=== PATIENT | male | born 1950 | race Caucasian/White ===

== ENCOUNTER 2016-07-12 14:33 | Inpatient (IN) | payer OTHER ==
[~2016-07-12] VITALS: Ht 162.6 cm; Wt 90.6 kg
[2016-07-12] MEDS ORDERED: MIRT15TA5 PO (18:06)
[2016-07-12] MEDS ORDERED: PARO10TA26 PO (18:06)
[2016-07-12] MEDS ORDERED: SIMV10TA PO (18:06)
[2016-07-12] MEDS ORDERED: OLAN15TA3 PO (18:07)
[2016-07-12] MEDS ORDERED: CLON1TAB3 PO (18:07)
[2016-07-12] MEDS ORDERED: GABA300C16 PO (18:08)
[2016-07-12] MEDS ORDERED: GLIP-95 PO (18:09)
[2016-07-12] MEDS ORDERED: MTF1000T PO (18:10)
[2016-07-12 19:46] VITALS: BP 113/77; RESP 15
[2016-07-12] MEDS ORDERED: NACL 0.9% 3 ML SYG IV SCH (20:00)
[2016-07-12] MEDS ORDERED: ALBUTEROL/IPRATROPIUM (NEB) 3 ML AMP HHN PRN (20:00)
[2016-07-12] MEDS ORDERED: ACETAMINOPHEN 325 MG TAB PO PRN (20:00)
[2016-07-12 20:06] VITALS: Ht 162.6 cm; Wt 90.6 kg
[2016-07-12 20:17] VITALS: BP 97/58; PULSE 73; RESP 19
[2016-07-12] MEDS ORDERED: GLUCOSE GEL 15 GRAM TUBE PO PRN ×2 (20:30)
[2016-07-12] MEDS ORDERED: DEXTROSE 50% 50 ML SYRINGE IV PRN ×2 (20:30)
[2016-07-12] MEDS ORDERED: GLUCAGON 1 MG INJ IM PRN (20:30)
[2016-07-12] MEDS ORDERED: GLUCOSE GEL 15 GRAM TUBE BUCCAL PRN (20:30)
[2016-07-12 20:41] VITALS: PULSE 71
[2016-07-12] MEDS ORDERED: INSULIN GLARGINE [LANtus] 3 ML PEN SC SCH (21:00)
[2016-07-12] MEDS: MIRTAZAPINE 15 MG TAB PO SCH (21:47)
[2016-07-12] MEDS: GABAPENTIN 300 MG CAP PO SCH (21:47)
[2016-07-12] MEDS: ATORVASTATIN 10 MG TAB PO SCH (21:47)
[2016-07-12] MEDS: METHYLPREDNISOLONE 125 MG INJ IV SCH (21:48)
[2016-07-12] MEDS: LEVOFLOXACIN 500MG/D5W (PMX) 100 ML IVPB SCH (21:48)
[2016-07-12] MEDS: INSULIN ASPART [NOVOLOG] 3 ML PEN SC SCH (21:52)
[2016-07-13] VITALS (12 sets, daily range): BP systolic 107–145; BP diastolic 66–104; PULSE 61–74; RESP 15–20
[2016-07-13] MEDS: ACCU-CHEK XX SCH ×5 (02:05→21:00)
[2016-07-13] MEDS: PANTOPRAZOLE (EC) 40 MG TAB PO SCH (06:03)
[2016-07-13] MEDS: INSULIN ASPART [NOVOLOG] 3 ML PEN SC SCH ×8 (07:48→22:04)
[2016-07-13] MEDS: PAROXETINE 10 MG TAB PO SCH (08:15)
[2016-07-13] MEDS: OLANZAPINE 5 MG TAB PO SCH (08:15)
[2016-07-13] MEDS: METHYLPREDNISOLONE 125 MG INJ IV SCH (08:15)
[2016-07-13] MEDS: GABAPENTIN 300 MG CAP PO SCH ×3 (08:15→22:01)
[2016-07-13] MEDS: ATORVASTATIN 10 MG TAB PO SCH (08:15)
[2016-07-13 10:05] LABS: ADD SCAN DIFF NO
[2016-07-13 10:10] LABS: BASOPHILS % 0.1 % (0.0-2.0); HEMATOCRIT 49.6 % (42.0-52.0); HEMOGLOBIN 16.4 g/dl (14.0-18.0); LYMPHOCYTES % 6.3 % (15.0-51.0); MEAN CORPUSCULAR HEMOGLOBIN 32.2 pg (29.0-33.0); MEAN CORPUSCULAR HGB CONC 33.1 g/dl (32.0-37.0); MEAN CORPUSCULAR VOLUME 97.3 fl (82.0-101.0); MEAN PLATELET VOLUME 11.2 fl (7.4-10.4); MONOCYTE # 0.6 10^3/ul (0.3-0.9); MONOCYTES % 3.9 % (0.0-11.0); NEUTROPHIL # 13.5 10^3/ul (1.6-7.5); NEUTROPHILS % 89.3 % (39.0-77.0); PLATELET COUNT 261 10^3/UL (140-415); RED CELL DISTRIBUTION WIDTH 12.2 % (11.5-14.5); WHITE BLOOD COUNT 15.2 10^3/ul (4.8-10.8)
[2016-07-13 10:14] LABS: CALCIUM 9.2 mg/dl (8.4-10.2); CREATININE 0.7 mg/dl (0.61-1.24); POTASSIUM 4.4 mmol/L (3.5-5.1)
[2016-07-13 11:02] LABS: AADO2 Arterial 47.2 mmHg (7.0-24.0); Allen Test ACCEPTAB; Arterial Base Excess -2.4 mmol/L (-3.0-3); Arterial COHb 0.3 % (0.0-3.0); Arterial Fraction of Oxyhgb 87.8 % (93.0-99.0); Arterial HCO3 21.9 mmol/L (22.0-26.0); Arterial MetHb 0.2 % (0.0-1.5); Arterial Total Hemglobin 16.9 g/dl (12.0-18.0); MODE ROOM AIR
--- NOTE | 2016-07-13 17:37 | QN ---
Documentation Comment [id number] PALMER EDUARDO MD July 13, 2016 17:37
[2016-07-13] MEDS ORDERED: INSULIN GLARGINE [LANtus] 3 ML PEN SC SCH (20:00)
[2016-07-13] MEDS: ALBUTEROL/IPRATROPIUM (NEB) 3 ML AMP HHN SCH (20:00)
--- NOTE | 2016-07-13 20:14 | HP ---
DATE OF ADMISSION: 07/12/2016 HISTORY OF PRESENT ILLNESS: Mr. Massey is a poor historian. The patient was transferred to [facility] due to capitation, was taken to the transferring hospital with diagn osis of short of breath. The patient denies having fevers, chills or rigors, denies any diabetes me llitus or hypertension, but the patient is on metformin. The patient denies any fevers, chills or r igors. The patient denies any dyspnea on exertion, chest pain, palpitation at this point, orthopnea or PND. PAST MEDICAL HISTORY: Positive for anxiety, depression, dyslipidemia, diabetes mellitus. ALLERGY HISTORY: DENIES. FAMILY HISTORY: Denies. SOCIAL HISTORY: Denies. MEDICATION HISTORY: He denies but listed medicines include: 1. Clonazepam. 2. Gabapentin. 3. Glipizide. 4. Metformin. 5. Mirtazapine. 6. Zyprexa. 7. Paxil. 8. Simvastatin. REVIEW OF SYSTEMS: HEENT: Unremarkable. RESPIRATORY: Short of breath. CARDIOVASCULAR: Unremarkable. ABDOMEN: Unremarkable. EXTREMITIES: Unremarkable. PHYSICAL EXAMINATION: GENERAL: The patient is mildly overweight. VITAL SIGNS: Stable. Pulse 65, blood pressure 130/66. HEAD: Atraumatic, normocephalic. EYES: Pupils equal, reactive to light. NECK: Supple. No JVD. LUNGS: Clear. CARDIOVASCULAR: S1, S2 are normal. ABDOMEN: Soft, nontender. Bowel sounds present. No palpable mass or hepatosplenomegaly. No guard ing, rebound tenderness. EXTREMITIES: No cyanosis, clubbing or edema. CENTRAL NERVOUS SYSTEM: The patient is awake, alert. No focal deficit. LABORATORY DATA: Sodium 132, potassium 4.4, glucose 315. IMPRESSION: The patient has: 1. Shortness of breath. 2. Azotemia. 3. Hyponatremia. 4. Possible underlying chronic obstructive pulmonary disease exacerbation. 5. Uncontrolled diabetes mellitus. PLAN: Give this patient Levaquin, sliding scale, Lipitor, clonazepam, gabapentin. The patient will have sliding scale, Solu-Medrol, breathing treatment. Orders were done. Dictated By: PALMER SOLIS/BONITA Conf#: [id number] DID#: [id number]
[2016-07-13] MEDS: MIRTAZAPINE 15 MG TAB PO SCH (22:01)
[2016-07-13] MEDS: LEVOFLOXACIN 500MG/D5W (PMX) 100 ML IVPB SCH (22:01)
[2016-07-13] MEDS: INSULIN GLARGINE [LANtus] 3 ML PEN SC SCH (22:07)
[2016-07-14] VITALS (12 sets, daily range): BP systolic 101–131; BP diastolic 63–78; PULSE 56–62; RESP 18–20
[2016-07-14] MEDS: clonAZEPAM 0.5 MG TAB PO PRN ×2 (00:18→23:50)
[2016-07-14] MEDS: ACCU-CHEK XX SCH ×5 (02:16→20:24)
[2016-07-14] MEDS: ALBUTEROL/IPRATROPIUM (NEB) 3 ML AMP HHN SCH ×4 (03:15→20:10)
--- NOTE | 2016-07-14 04:09 | RADRPT ---
PROCEDURE: CT Chest without contrast. CLINICAL INDICATION: Shortness of breath TECHNIQUE: Spiral CT images through the chest without contrast. Coronal and sagittal reformatted images were obtained from the axial source images. The total exam CTDI equals 14.37 mGy and the tota l exam DLP equals 541.16 mGy-cm. One or more of the following dose reduction techniques were used: a utomated exposure control, adjustment of the mA and/or kV according to patient size, or use of itera tive reconstruction technique. COMPARISON: None FINDINGS: Slight calcification of the aortic arch and coronary arteries is seen. No focal consolidation is se en. There is dependent atelectasis of the lungs. There is, however, a subtle suggestion of tiny per ibronchial nodular opacities throughout the lung aguilar bilaterally which could be due to tiny perib ronchial nodules in the setting of bronchiolitis. No bronchiectasis is seen. No definite tree in b ud opacities. The heart size appears within normal limits. Calcified hepatic granuloma is seen. No pleural or pericardial effusion is seen. No hilar or mediastinal adenopathy is seen. There is min imal degenerative change of the spine. No other abnormality is seen.. IMPRESSION: No definite focal consolidation or pleural effusion. Possible subtle tiny nodules throughout the ryann ngs which could be due to very subtle bronchiolitis or may be incidental. RPTAT: HLBE Physician Dragan Date Time Electronically viewed and signed by Itzel Valdivia Physician on 07/14/2016 04:08 RIGO/
[2016-07-14] MEDS: PANTOPRAZOLE (EC) 40 MG TAB PO SCH (05:18)
[2016-07-14 07:25] LABS: ADD SCAN DIFF NO
[2016-07-14] MEDS: INSULIN ASPART [NOVOLOG] 3 ML PEN SC SCH ×7 (07:35→20:18)
[2016-07-14 07:44] LABS: BASOPHILS % 0.2 % (0.0-2.0); EOSINOPHILS # 0.1 10^3/ul (0.0-0.5); EOSINOPHILS % 0.5 % (0.0-7.0); HEMATOCRIT 47.3 % (42.0-52.0); HEMOGLOBIN 15.8 g/dl (14.0-18.0); LYMPHOCYTES % 23.7 % (15.0-51.0); MEAN CORPUSCULAR HEMOGLOBIN 32.3 pg (29.0-33.0); MEAN CORPUSCULAR HGB CONC 33.4 g/dl (32.0-37.0); MEAN CORPUSCULAR VOLUME 96.7 fl (82.0-101.0); MEAN PLATELET VOLUME 10.8 fl (7.4-10.4); MONOCYTE # 0.9 10^3/ul (0.3-0.9); MONOCYTES % 7.2 % (0.0-11.0); NEUTROPHIL # 8.4 10^3/ul (1.6-7.5); NEUTROPHILS % 67.6 % (39.0-77.0); PLATELET COUNT 229 10^3/UL (140-415); RED BLOOD COUNT 4.89 10^6/ul (4.70-6.10); RED CELL DISTRIBUTION WIDTH 12.1 % (11.5-14.5); WHITE BLOOD COUNT 12.5 10^3/ul (4.8-10.8)
[2016-07-14 08:23] LABS: ALBUMIN 3.7 g/dl (3.3-4.9)
[2016-07-14 08:25] LABS: ALBUMIN/GLOBULIN RATIO 1.02; BILIRUBIN,INDIRECT 0.2 mg/dl (0-1.1); BILIRUBIN,TOTAL 0.2 mg/dl (0.2-1.3); CREATININE 0.79 mg/dl (0.61-1.24); TOTAL PROTEIN 7.3 g/dl (6.1-8.1)
[2016-07-14 08:26] LABS: CALCIUM 8.8 mg/dl (8.4-10.2)
[2016-07-14] MEDS: PAROXETINE 10 MG TAB PO SCH (08:45)
[2016-07-14] MEDS: ATORVASTATIN 10 MG TAB PO SCH (08:45)
[2016-07-14] MEDS: OLANZAPINE 5 MG TAB PO SCH (08:45)
[2016-07-14] MEDS: GABAPENTIN 300 MG CAP PO SCH ×3 (08:45→20:24)
[2016-07-14] MEDS ORDERED: METHYLPREDNISOLONE 40 MG INJ IV SCH (09:00)
[2016-07-14] MEDS: ENOXAPARIN 40 MG/0.4 ML SYG SC SCH (09:05)
[2016-07-14] MEDS: LEVOFLOXACIN 500MG/D5W (PMX) 100 ML IVPB SCH (20:00)
[2016-07-14] MEDS: INSULIN GLARGINE [LANtus] 3 ML PEN SC SCH (20:22)
[2016-07-14] MEDS: MIRTAZAPINE 15 MG TAB PO SCH (20:24)
--- NOTE | 2016-07-14 23:27 | PN ---
Date/Time of Note Date/Time of Note DATE: 07/14/16 TIME: 23:26 Assessment/Plan VTE Prophylaxis VTE Prophylaxis Intervention: other Lines/Catheters [facility] Saline Lock Urinary Cath still in place: No Assessment/Plan Chief Complaint/Hosp Course IMPRESSION: The patient has: 1. Shortness of breath. 2. Azotemia. 3. Hyponatremia. 4. Possible underlying chronic obstructive pulmonary disease exacerbation. 5. Uncontrolled diabetes mellitus. plan hhn steroid Problems: Subjective 24 Hr Interval Summary Cardiovascular: no complaints Gastrointestinal: no complaints Exam/Review of Systems Vital Signs Vitals Vital Signs Date Time Temp Pulse Resp B/P Pulse Ox O2 Delivery O2 Flow Rate FiO2 07/14/16 20:19 61 07/14/16 20:19 18 98 Nasal Cannula 2.0 07/14/16 19:53 97.5 131/78 Intake and Output 07/13/16 07/13/16 07/14/16 15:00 23:00 07:00 Intake Total 850 ml 540 ml Output Total 800 ml 300 ml Balance 50 ml 240 ml Exam Respiratory: diminished breath sounds Cardiovascular: regular rate and rhythm Gastrointestinal: soft Extremities: normal pulses Neurological: SCOW HAND II-XII intact Results Result Diagram: 07/14/16 0653 07/14/16 0658 Results 24 hrs Laboratory Tests Test 07/14/16 02:13 07/14/16 06:53 07/14/16 06:58 07/14/16 07:32 Bedside Glucose 253 H 265 H White Blood Count 12.5 H Red Blood Count 4.89 Hemoglobin 15.8 Hematocrit 47.3 Mean Corpuscular Volume 96.7 Mean Corpuscular Hemoglobin 32.3 Mean Corpuscular Hemoglobin Concent 33.4 Red Cell Distribution Width 12.1 Platelet Count 229 Mean Platelet Volume 10.8 H Neutrophils % 67.6 Lymphocytes % 23.7 Monocytes % 7.2 Eosinophils % 0.5 Basophils % 0.2 Nucleated Red Blood Cells % 0.0 Neutrophils # 8.4 H Lymphocytes # 3.0 H Monocytes # 0.9 Eosinophils # 0.1 Basophils # 0.0 Nucleated Red Blood Cells # 0.0 Sodium Level 133 L Potassium Level 4.0 Chloride Level 96 L Carbon Dioxide Level 27 Anion Gap 14 Blood Urea Nitrogen 28 H Creatinine 0.79 Glucose Level 280 H Calcium Level 8.8 Total Bilirubin 0.2 Direct Bilirubin 0.00 Indirect Bilirubin 0.2 Aspartate Amino Transf (AST/SGOT) 21 Alanine Aminotransferase (ALT/SGPT) 36 Alkaline Phosphatase 92 Total Protein 7.3 Albumin 3.7 Globulin 3.60 H Albumin/Globulin Ratio 1.02 Test 07/14/16 12:08 07/14/16 17:21 07/14/16 20:06 Bedside Glucose 249 H 351 H 307 H Medications Medications Current Medications Acetaminophen (Tylenol Tab) 650 mg Q6H PRN PO PAIN LEVEL 1-3 OR FEVER; Start at 20:00 Diagnostic Test (Pha) (Accu-Chek) 1 ea 02 XX Last administered on 07/14/16 02: 16; Admin Dose 1 EA; Start 07/13/16 at 02:00 Pantoprazole 40 mg 40 mg DAILY@06 PO Last administered on 07/14/16 05:18; Admin Dose 40 MG; Start 07/13/16 at 06:00 Levofloxacin/ Dextrose (Levaquin 500mg/ D5W 100 ml (Pmx)) 100 ml @ 100 mls/hr Q24H IVPB Last administered on 07/14/16 20:00; Admin Dose 100 MLS/HR; Start at 20:00 Clonazepam (Klonopin) 1 mg TID PRN PO ANXIETY Last administered on 07/14/16 00 :18; Admin Dose 1 MG; Start 07/12/16 at 20:00 Gabapentin (Neurontin) 300 mg TID PO Last administered on 07/14/16 20:24; Admin Dose 300 MG; Start 07/12/16 at 21:00 Mirtazapine (Remeron) 15 mg HS PO Last administered on 07/14/16 20:24; Admin Dose 15 MG; Start 07/12/16 at 21:00 Olanzapine (Zyprexa) 15 mg DAILY PO Last administered on 07/14/16 08:45; Admin Dose 15 MG; Start 07/13/16 at 09:00 Paroxetine HCl (Paxil) 10 mg DAILY PO Last administered on 07/14/16 08:45; Admin Dose 10 MG; Start 07/13/16 at 09:00 Atorvastatin Calcium (Lipitor) 10 mg DAILY PO Last administered on 07/14/16 08 :45; Admin Dose 10 MG; Start 07/12/16 at 21:00 Miscellaneous Information 1 ea NOTE XX ; Start 07/12/16 at 20:30 Glucose (Glutose) 15 gm Q15M PRN PO DECREASED GLUCOSE; Start 07/12/16 at 20:30 Glucose (Glutose) 22.5 gm Q15M PRN PO DECREASED GLUCOSE; Start 07/12/16 at 20: 30 Dextrose (D50w Syringe) 25 ml Q15M PRN IV DECREASED GLUCOSE; Start 07/12/16 at 20:30 Dextrose (D50w Syringe) 50 ml Q15M PRN IV DECREASED GLUCOSE; Start 07/12/16 at 20:30 Glucagon (Glucagen) 1 mg Q15M PRN IM DECREASED GLUCOSE; Start 07/12/16 at 20:30 Glucose (Glutose) 15 gm Q15M PRN BUCCAL DECREASED GLUCOSE; Start 07/12/16 at 20 :30 Enoxaparin Sodium (Lovenox) 40 mg DAILY SC Last administered on 07/14/16 09:05 ; Admin Dose 40 MG; Start 07/14/16 at 09:00 Insulin Glargine (Lantus) 30 unit DAILY@20 SC Last administered on 07/14/16 20 :22; Admin Dose 30 UNIT; Start 07/13/16 at 20:00 Methylprednisolone Sodium Succinate (Solu-Medrol) 20 mg DAILY IV ; Start at 09:00 PALMER EDUARDO MD July 14, 2016 23:27
[2016-07-15] VITALS (12 sets, daily range): BP systolic 103–128; BP diastolic 57–78; PULSE 45–67; RESP 18–20
[2016-07-15] MEDS: ALBUTEROL/IPRATROPIUM (NEB) 3 ML AMP HHN SCH ×4 (01:24→19:58)
[2016-07-15] MEDS: ACCU-CHEK XX SCH ×5 (02:00→21:00)
[2016-07-15] MEDS: PANTOPRAZOLE (EC) 40 MG TAB PO SCH (05:51)
[2016-07-15] MEDS: GABAPENTIN 300 MG CAP PO SCH ×3 (08:20→20:39)
[2016-07-15] MEDS: PAROXETINE 10 MG TAB PO SCH (08:20)
[2016-07-15] MEDS: ATORVASTATIN 10 MG TAB PO SCH (08:20)
[2016-07-15] MEDS: OLANZAPINE 5 MG TAB PO SCH (08:20)
[2016-07-15] MEDS: ENOXAPARIN 40 MG/0.4 ML SYG SC SCH (08:57)
[2016-07-15] MEDS: INSULIN ASPART [NOVOLOG] 3 ML PEN SC SCH ×7 (08:57→20:44)
[2016-07-15] MEDS ORDERED: METHYLPREDNISOLONE 40 MG INJ IV SCH (09:00)
--- NOTE | 2016-07-15 14:49 | CONS ---
Date/Time of Note Date/Time of Note DATE: 07/15/16 TIME: 14:48 Consultation Date/Type/Reason Admit Date/Time July 12, 2016 at 19:06 Date of Consultation: July 15, 2016 Type of Consultation: Pulmonary Reason for Consultation Consult dictated [id number] Patient can be discharged home on Medrol Dosepak and Levaquin at least for 3 more days. Obtain pulse oximetry on room air with ambulation rule out hypoxemia. Cardiovascular: no complaints Gastrointestinal: no complaints Social History Smoking Status: Current every day smoker Exam/Review of Systems Vital Signs Vitals Vital Signs Date Time Temp Pulse Resp B/P Pulse Ox O2 Delivery O2 Flow Rate FiO2 07/15/16 12:00 62 07/15/16 08:19 18 98 Nasal Cannula 2.0 07/15/16 07:39 97.7 118/74 Intake and Output 07/14/16 07/14/16 07/15/16 15:00 23:00 07:00 Intake Total 900 ml 700 ml Output Total 1000 ml Balance -100 ml 700 ml Results Result Diagram: 07/14/16 0653 07/14/16 0658 Results 24 hrs Laboratory Tests Test 07/14/16 17:21 07/14/16 20:06 07/15/16 02:29 07/15/16 07:51 Bedside Glucose 351 H 307 H 197 275 H Test 07/15/16 11:52 Bedside Glucose 284 H Medications Medications Current Medications Acetaminophen (Tylenol Tab) 650 mg Q6H PRN PO PAIN LEVEL 1-3 OR FEVER; Start at 20:00 Diagnostic Test (Pha) (Accu-Chek) 1 ea 02 XX Last administered on 07/15/16 02: 00; Admin Dose 1 EA; Start 07/13/16 at 02:00 Pantoprazole (Protonix Tab) 40 mg DAILY@06 PO Last administered on 07/15/16 05 :51; Admin Dose 40 MG; Start 07/13/16 at 06:00 Clonazepam (Klonopin) 1 mg TID PRN PO ANXIETY Last administered on 07/14/16 23 :50; Admin Dose 1 MG; Start 07/12/16 at 20:00 Gabapentin (Neurontin) 300 mg TID PO Last administered on 07/15/16 12:25; Admin Dose 300 MG; Start 07/12/16 at 21:00 Mirtazapine (Remeron) 15 mg HS PO Last administered on 07/14/16 20:24; Admin Dose 15 MG; Start 07/12/16 at 21:00 Olanzapine (Zyprexa) 15 mg DAILY PO Last administered on 07/15/16 08:20; Admin Dose 15 MG; Start 07/13/16 at 09:00 Paroxetine HCl (Paxil) 10 mg DAILY PO Last administered on 07/15/16 08:20; Admin Dose 10 MG; Start 07/13/16 at 09:00 Atorvastatin Calcium (Lipitor) 10 mg DAILY PO Last administered on 07/15/16 08 :20; Admin Dose 10 MG; Start 07/12/16 at 21:00 Miscellaneous Information 1 ea NOTE XX ; Start 07/12/16 at 20:30 Glucose (Glutose) 15 gm Q15M PRN PO DECREASED GLUCOSE; Start 07/12/16 at 20:30 Glucose (Glutose) 22.5 gm Q15M PRN PO DECREASED GLUCOSE; Start 07/12/16 at 20: 30 Dextrose (D50w Syringe) 25 ml Q15M PRN IV DECREASED GLUCOSE; Start 07/12/16 at 20:30 Dextrose (D50w Syringe) 50 ml Q15M PRN IV DECREASED GLUCOSE; Start 07/12/16 at 20:30 Glucagon (Glucagen) 1 mg Q15M PRN IM DECREASED GLUCOSE; Start 07/12/16 at 20:30 Glucose (Glutose) 15 gm Q15M PRN BUCCAL DECREASED GLUCOSE; Start 07/12/16 at 20 :30 Enoxaparin Sodium (Lovenox) 40 mg DAILY SC Last administered on 07/15/16 08:57 ; Admin Dose 40 MG; Start 07/14/16 at 09:00 Insulin Glargine (Lantus) 30 unit DAILY@20 SC Last administered on 07/14/16 20 :22; Admin Dose 30 UNIT; Start 07/13/16 at 20:00 Methylprednisolone Sodium Succinate (Solu-Medrol) 20 mg DAILY IV Last administered on 07/15/16 08:21; Admin Dose 20 MG; Start 07/15/16 at 09:00 Levofloxacin (Levaquin) 500 mg DAILY@18 PO ; Start 07/15/16 at 18:00 VAISHNAVI ORR July 15, 2016 14:49
--- NOTE | 2016-07-15 15:36 | CONS ---
DATE OF ADMISSION: 07/12/2016 DATE OF CONSULTATION: 07/15/2016 PULMONARY CONSULTATION TIME: 2:45 p.m. REFERRING PHYSICIAN: Dr. Km Yadav REASON FOR REFERRAL: Evaluation of COPD exacerbation. HISTORY OF PRESENT ILLNESS: Mr. Galaviz is a 66-year-old male who was transferred to [facility] due to cavitation issues. The patient was taken to a transferring ospital with complains of shortness of breath, coughing and wheezing, going on for the last few days . By the time I saw the patient, the patient was feeling much better. Still complains of very minim al shortness of breath. According to him the wheezing and chest congestion is better. He denies an y high fever, chills, or any body aches or myalgias. PAST MEDICAL HISTORY: 1. COPD. 2. Diabetes. 3. Hyperlipidemia. 4. Depression. 5. Anxiety. 6. No history of any coronary artery disease. CURRENT MEDICATIONS: 1. Levaquin 500 mg IV daily. 2. Lipitor 10 mg a day. 3. Klonopin 1 mg t.i.d. p.r.n. anxiety. 4. Lovenox 40 mg a day. 5. Neurontin 300 mg t.i.d. 6. Lantus insulin 30 units daily. 7. Solu-Medrol 40 mg IV daily. 8. Sliding scale insulin. 9. Protonix 40 mg a day. 10. Paxil 10 mg a day. ALLERGIES: NONE. SOCIAL HISTORY: The patient smokes off and on. No history of alcohol or drug abuse. FAMILY HISTORY: Various family members have diabetes and hypertension. OCCUPATIONAL HISTORY: The patient is currently on disability. He used to work in construction. REVIEW OF SYSTEMS: Denies any headaches, visual changes, sinus symptoms, postnasal drip. Chest: Sh ortness of breath is improving. Complains of very minimal dyspnea on exertion. Complains of very s cant cough, scant yellow sputum production. Denies any fever, chills, abdominal pain, nausea, vomit ing, melena, hematochezia, edema, orthopnea, PND or any weight change. PHYSICAL EXAMINATION: GENERAL: Elderly awake, alert, currently in no distress. VITAL SIGNS: Temperature 98 degree Fahrenheit, respiratory rate is 18 per minute, heart rate 62 per minute, blood pressure is 118/74, O2 saturation is 98% on 2 liters nasal cannula. HEENT EXAMINATION: Supple neck. No JVD, no lymphadenopathy. Midline trachea. No thyromegaly. Pha rynx clear. No neck bruits. Patient is edentulous. Pupils are mid size and reactive to light bilat erally. Extraocular movements are intact. CHEST EXAMINATION: Diminished but clear breath sounds. HEART: S1, S2 audible. No murmurs. Regular rhythm. ABDOMEN: Soft, nontender, nondistended, protuberant. Bowel sounds audible. No organomegaly. EXTREMITIES: No peripheral edema. Pulses are 1+ bilaterally. No clubbing. NEUROLOGIC EXAM: Cranial nerves are normal. There is no motor or sensory deficits. CT chest was reviewed from the of this month, which is essentially unremarkable. LABORATORY: From yesterday: Sodium 133, potassium 4, chloride 96, bicarbonate 27, glucose 280, BUN 28, creatinine 0.79. White count from yesterday is 12.5, hemoglobin 15.8, platelet count of 229. A BG done on of this month on room air, a pH of 7.39, CO2 of 36, pO2 of 58, O2 saturation 88.2%. ASSESSMENT AND PLAN: 1. Patient admitted with COPD exacerbation and acute bronchitis, with significant clinical improvem ent. 2. History of diabetes, with mild hyperglycemia from systemic steroid treatment. 3. History of depression. 4. History of hyperlipidemia. RECOMMENDATIONS: The patient can be discharged back to home or a residential. Before discharge I would recommend obtaining an ambulatory pulse oximetry to rule out exertional hypoxemia. Patient a lso would benefit from continuation of steroids in the form of a Medrol Dosepak to be used as direct ed, with continuation of oral Levaquin at least for 3 more days. The patient would benefit from a P FT on an outpatient basis and was urged to quit smoking. Dictated By: VAISHNAVI MAHER/BONITA Conf#: [id number] DID#: [id number]
[2016-07-15] MEDS: LEVOFLOXACIN 500 MG TAB PO SCH (17:37)
[2016-07-15] MEDS: MIRTAZAPINE 15 MG TAB PO SCH (20:39)
[2016-07-15] MEDS: INSULIN GLARGINE [LANtus] 3 ML PEN SC SCH (20:43)
--- NOTE | 2016-07-15 22:38 | PN ---
Date/Time of Note Date/Time of Note DATE: 07/15/16 TIME: 22:37 Assessment/Plan VTE Prophylaxis VTE Prophylaxis Intervention: other Lines/Catheters IV Catheter Type (from [facility]): Saline Lock Urinary Cath still in place: No Assessment/Plan Chief Complaint/Hosp Course IMPRESSION: The patient has: 1. Shortness of breath. better 2. Azotemia. 3. Hyponatremia. 4. Possible underlying chronic obstructive pulmonary disease exacerbation. 5. Uncontrolled diabetes mellitus.nichelle plan hhn steroid Problems: Subjective 24 Hr Interval Summary Respiratory: shortness of breath (better) Gastrointestinal: no complaints Genitourinary: no complaints Exam/Review of Systems Vital Signs Vitals Vital Signs Date Time Temp Pulse Resp B/P Pulse Ox O2 Delivery O2 Flow Rate FiO2 07/15/16 20:14 97.7 67 20 123/73 97 07/15/16 20:05 2.0 07/15/16 19:59 Nasal Cannula 27 Intake and Output 07/14/16 07/14/16 07/15/16 15:00 23:00 07:00 Intake Total 900 ml 700 ml Output Total 1000 ml Balance -100 ml 700 ml Exam Respiratory: clear to auscultation Cardiovascular: regular rate and rhythm Gastrointestinal: soft Results Result Diagram: 07/14/16 0653 07/14/16 0658 Results 24 hrs Laboratory Tests Test 07/15/16 02:29 07/15/16 07:51 07/15/16 11:52 07/15/16 17:38 Bedside Glucose 197 275 H 284 H 76 Test 07/15/16 20:41 Bedside Glucose 241 H Medications Medications Current Medications Acetaminophen (Tylenol Tab) 650 mg Q6H PRN PO PAIN LEVEL 1-3 OR FEVER; Start at 20:00 Diagnostic Test (Pha) (Accu-Chek) 1 ea 02 XX Last administered on 07/15/16 02: 00; Admin Dose 1 EA; Start 07/13/16 at 02:00 Pantoprazole (Protonix Tab) 40 mg DAILY@06 PO Last administered on 07/15/16 05 :51; Admin Dose 40 MG; Start 07/13/16 at 06:00 Clonazepam (Klonopin) 1 mg TID PRN PO ANXIETY Last administered on 07/14/16 23 :50; Admin Dose 1 MG; Start 07/12/16 at 20:00 Gabapentin (Neurontin) 300 mg TID PO Last administered on 07/15/16 20:39; Admin Dose 300 MG; Start 07/12/16 at 21:00 Mirtazapine (Remeron) 15 mg HS PO Last administered on 07/15/16 20:39; Admin Dose 15 MG; Start 07/12/16 at 21:00 Olanzapine (Zyprexa) 15 mg DAILY PO Last administered on 07/15/16 08:20; Admin Dose 15 MG; Start 07/13/16 at 09:00 Paroxetine HCl (Paxil) 10 mg DAILY PO Last administered on 07/15/16 08:20; Admin Dose 10 MG; Start 07/13/16 at 09:00 Atorvastatin Calcium (Lipitor) 10 mg DAILY PO Last administered on 07/15/16 08 :20; Admin Dose 10 MG; Start 07/12/16 at 21:00 Miscellaneous Information 1 ea NOTE XX ; Start 07/12/16 at 20:30 Glucose (Glutose) 15 gm Q15M PRN PO DECREASED GLUCOSE; Start 07/12/16 at 20:30 Glucose (Glutose) 22.5 gm Q15M PRN PO DECREASED GLUCOSE; Start 07/12/16 at 20: 30 Dextrose (D50w Syringe) 25 ml Q15M PRN IV DECREASED GLUCOSE; Start 07/12/16 at 20:30 Dextrose (D50w Syringe) 50 ml Q15M PRN IV DECREASED GLUCOSE; Start 07/12/16 at 20:30 Glucagon (Glucagen) 1 mg Q15M PRN IM DECREASED GLUCOSE; Start 07/12/16 at 20:30 Glucose (Glutose) 15 gm Q15M PRN BUCCAL DECREASED GLUCOSE; Start 07/12/16 at 20 :30 Enoxaparin Sodium (Lovenox) 40 mg DAILY SC Last administered on 07/15/16 08:57 ; Admin Dose 40 MG; Start 07/14/16 at 09:00 Insulin Glargine (Lantus) 30 unit DAILY@20 SC Last administered on 07/15/16 20 :43; Admin Dose 30 UNIT; Start 07/13/16 at 20:00 Methylprednisolone Sodium Succinate (Solu-Medrol) 20 mg DAILY IV Last administered on 07/15/16 08:21; Admin Dose 20 MG; Start 07/15/16 at 09:00 Levofloxacin (Levaquin) 500 mg DAILY@18 PO Last administered on 07/15/16t 17:37 ; Admin Dose 500 MG; Start 07/15/16 at 18:00 PALMER EDUARDO MD July 15, 2016 22:38
[2016-07-16] VITALS (9 sets, daily range): BP systolic 118–136; BP diastolic 69–81; PULSE 60–95; RESP 18–20
[2016-07-16] MEDS: ACCU-CHEK XX SCH ×4 (02:00→16:52)
[2016-07-16] MEDS: ALBUTEROL/IPRATROPIUM (NEB) 3 ML AMP HHN SCH ×3 (02:03→13:39)
[2016-07-16] MEDS: PANTOPRAZOLE (EC) 40 MG TAB PO SCH (05:28)
[2016-07-16] MEDS: INSULIN ASPART [NOVOLOG] 3 ML PEN SC SCH ×4 (08:23→17:23)
[2016-07-16] MEDS ORDERED: predniSONE 10 MG TAB PO SCH (09:00)
[2016-07-16] MEDS: PAROXETINE 10 MG TAB PO SCH (09:27)
[2016-07-16] MEDS: OLANZAPINE 5 MG TAB PO SCH (09:28)
[2016-07-16] MEDS: GABAPENTIN 300 MG CAP PO SCH ×2 (09:28→12:19)
[2016-07-16] MEDS: ATORVASTATIN 10 MG TAB PO SCH (09:28)
[2016-07-16] MEDS: ENOXAPARIN 40 MG/0.4 ML SYG SC SCH (09:35)
[2016-07-16] MEDS: clonAZEPAM 0.5 MG TAB PO PRN (10:48)
--- NOTE | 2016-07-16 14:26 | PN ---
Date/Time of Note Date/Time of Note DATE: 07/16/16 TIME: 14:25 Assessment/Plan VTE Prophylaxis VTE Prophylaxis Intervention: ambulation Lines/Catheters IV C[facility]ter Type (from [facility]): Saline Lock Urinary Cath still in place: No Assessment/Plan Chief Complaint/Hosp Course 1. Shortness of breath. better 2. Azotemia. 3. Hyponatremia. 4. COPD, exacerbation. 5. diabetes mellitus, controlled Problems: Assessment/Plan 1. Discharge Subjective 24 Hr Interval Summary Constitutional: improved, no complaints Eyes: no complaints ENT: no complaints Respiratory: no complaints Cardiovascular: no complaints Exam/Review of Systems Vital Signs Vitals Vital Signs Date Time Temp Pulse Resp B/P Pulse Ox O2 Delivery O2 Flow Rate FiO2 07/16/16 13:41 70 20 94 Nasal Cannula 2.0 07/16/16 11:31 98.4 118/76 07/16/16 02:03 27 Intake and Output 07/15/16 07/15/16 07/16/16 15:00 23:00 07:00 Intake Total 2800 ml 2000 ml Balance 2800 ml 2000 ml Exam Constitutional: alert, oriented Psych: no complaints Head: normocephalic Neck: supple Respiratory: diminished breath sounds Cardiovascular: regular rate and rhythm Results Result Diagram: 07/14/16 0653 07/14/16 0658 Results 24 hrs Laboratory Tests Test 07/15/16 17:38 07/15/16 20:41 07/16/16 08:16 07/16/16 11:28 Bedside Glucose 76 241 H 264 H 242 H Test 07/16/16 12:18 Bedside Glucose 256 H Medications Medications Current Medications Acetaminophen (Tylenol Tab) 650 mg Q6H PRN PO PAIN LEVEL 1-3 OR FEVER; Start at 20:00 Diagnostic Test (Pha) (Accu-Chek) 1 ea 02 XX Last administered on 07/15/16 02: 00; Admin Dose 1 EA; Start 07/13/16 at 02:00 Pantoprazole (Protonix Tab) 40 mg DAILY@06 PO Last administered on 07/16/16 05 :28; Admin Dose 40 MG; Start 07/13/16 at 06:00 Clonazepam (Klonopin) 1 mg TID PRN PO ANXIETY Last administered on 07/16/16 10 :48; Admin Dose 1 MG; Start 07/12/16 at 20:00 Gabapentin (Neurontin) 300 mg TID PO Last administered on 07/16/16 12:19; Admin Dose 300 MG; Start 07/12/16 at 21:00 Mirtazapine (Remeron) 15 mg HS PO Last administered on 07/15/16 20:39; Admin Dose 15 MG; Start 07/12/16 at 21:00 Olanzapine (Zyprexa) 15 mg DAILY PO Last administered on 07/16/16 09:28; Admin Dose 15 MG; Start 07/13/16 at 09:00 Paroxetine HCl (Paxil) 10 mg DAILY PO Last administered on 07/16/16 09:27; Admin Dose 10 MG; Start 07/13/16 at 09:00 Atorvastatin Calcium (Lipitor) 10 mg DAILY PO Last administered on 07/16/16 09 :28; Admin Dose 10 MG; Start 07/12/16 at 21:00 Miscellaneous Information 1 ea NOTE XX ; Start 07/12/16 at 20:30 Glucose (Glutose) 15 gm Q15M PRN PO DECREASED GLUCOSE; Start 07/12/16 at 20:30 Glucose (Glutose) 22.5 gm Q15M PRN PO DECREASED GLUCOSE; Start 07/12/16 at 20: 30 Dextrose (D50w Syringe) 25 ml Q15M PRN IV DECREASED GLUCOSE; Start 07/12/16 at 20:30 Dextrose (D50w Syringe) 50 ml Q15M PRN IV DECREASED GLUCOSE; Start 07/12/16 at 20:30 Glucagon (Glucagen) 1 mg Q15M PRN IM DECREASED GLUCOSE; Start 07/12/16 at 20:30 Glucose (Glutose) 15 gm Q15M PRN BUCCAL DECREASED GLUCOSE; Start 07/12/16 at 20 :30 Enoxaparin Sodium (Lovenox) 40 mg DAILY SC Last administered on 07/16/16 09:35 ; Admin Dose 40 MG; Start 07/14/16 at 09:00 Insulin Glargine (Lantus) 30 unit DAILY@20 SC Last administered on 07/15/16 20 :43; Admin Dose 30 UNIT; Start 07/13/16 at 20:00 Levofloxacin (Levaquin) 500 mg DAILY@18 PO Last administered on 07/15/16 17:37 ; Admin Dose 500 MG; Start 07/15/16 at 18:00 Prednisone (Prednisone) 10 mg DAILY PO Last administered on 07/16/16t 09:28; Admin Dose 10 MG; Start 07/16/16 at 09:00 CHANTEL PEGUERO July 16, 2016 14:26
--- NOTE | 2016-07-16 14:27 | PDOCDIS ---
Discharge Instructions CONDITION Patient Condition: Good HOME CARE INSTRUCTIONS: Diet Instructions: Low Fat /CholesterolSpecial Diet: 2GM NA, 1800 MANUEL ACTIVITY: Activity Restrictions: Slowly Increase Activity Bathing Restrictions: Sponge Bath FOLLOW UP/APPOINTMENTS Appointments pcp 1 week CHANTEL PEGUERO July 16, 2016 14:27
[2016-07-16] MEDS ORDERED: PRED10TA PO (14:30)
[2016-07-16] MEDS ORDERED: LEVO500T72 PO (14:34)
[2016-07-16] MEDS ORDERED: PANT40TA4 PO (14:34)
[2016-07-16] MEDS: LEVOFLOXACIN 500 MG TAB PO SCH (17:21)
[2016-07-16] MEDS ORDERED: INSULIN ASPART [NOVOLOG] 3 ML PEN SC SCH (17:55)
[2016-07-16] MEDS ORDERED: metFORMIN 500 MG TAB PO SCH (17:55)
== END 2016-07-16 18:25 | disposition home or self-care (01) | DRG 191 ==
LOC: TEL 19:06 → UNDODISIN 19:20 → TEL 07-15 10:36
PROVIDERS: ADMIT Internal Medicine Nephrology; ATTEND Internal Medicine Nephrology
DX: J44.1 Chronic obstructive pulmonary disease with (acute) exacerbation (principal); E87.1 Hypo-osmolality and hyponatremia; I10 Essential (primary) hypertension; R06.02 Shortness of breath; R79.89 Other specified abnormal findings of blood chemistry; E11.9 Type 2 diabetes mellitus without complications; E78.5 Hyperlipidemia, unspecified
CPT/HCPCS: 36600; 71250; 80048; 80053; 82803; 82962; 83036; 85025; 94640; 94664; J1650; J1815; J1956; J2920; J2930; J7512